=== PATIENT | male | born 1955 | race Caucasian/White ===

== ENCOUNTER 2023-01-08 04:14 | Emergency (ER) | payer MEDICARE, MEDICAID ==
[~2023-01-08] VITALS: Ht 177.8 cm; Wt 81.6 kg
[2023-01-08 04:22] VITALS: BP_SYST 167; PULSE 87; RESP 17; TEMP 97.2; O2SAT 99
[2023-01-08 04:57] VITALS: BP_SYST 167; PULSE 87; RESP 17; TEMP 97.2; O2SAT 99
== END 2023-01-08 04:57 ==
LOC: SED 04:14
DX: Z02.89 Encounter for other administrative examinations (principal); F19.10 Other psychoactive substance abuse, uncomplicated; F15.10 Other stimulant abuse, uncomplicated; Z79.899 Other long term (current) drug therapy
CPT/HCPCS: 99283